=== PATIENT | male | born 1945 | race Caucasian/White ===

== ENCOUNTER → 2018-05-31 | Outpatient (CLI) | payer MEDICARE ==
--- NOTE | 2018-05-31 16:12 | MR ---
EXAMINATION TYPE: MR lumbar spine wo con DATE OF EXAM: 05/31/2018 COMPARISON: None HISTORY: Low back pain x 3 months TECHNIQUE: Multiplanar, multisequence images of the lumbar spine were acquired. FINDINGS: The lumbar spine vertebral bodies maintain normal vertebral body height. There is mild retr olisthesis of L5 on S1, likely on a degenerative basis. Remainder of the lumbar spine maintains usman l alignment. Conus medullaris is unremarkable terminating at L1-L2. Descending thoracic aorta is uppe r limits of normal size measuring 2.9 cm. Multilevel disc desiccation is seen with intervertebral dis c space narrowing. Bone marrow signal is patchy. There is a left lateral T1 hypointense and T2 hypoin tense focal osseous lesion of L4 measuring 1.2 cm in anterior posterior dimension and 1.0 cm in crani ocaudal dimension. This is seen on images 5 through 7 on sagittal T1 and T2 weighted sequences. L1-L2: Normal disc appearance without desiccation. No herniation, protrusion or disc bulging. No ca nal stenosis is present. Foramina are patent bilaterally. L2-L3: There is a broad-based disc bulge, facet arthropathy and ligamentum flavum buckling creating m ild bilateral neural foraminal narrowing and mild spinal canal stenosis. L3-L4: There is a broad-based disc bulge, facet arthropathy and ligamentum flavum buckling creating m ild bilateral neural foraminal narrowing. No significant spinal canal stenosis. L4-L5: There is a broad-based disc bulge and right paracentral disc herniation/extrusion with 1 cm [address] sc, migration that is subligamentous. Facet arthropathy and ligamentum flavum buckling contribute to moderate bilateral neural foraminal narrowing and mild spinal canal stenosis. L5-S1: There is a small central disc herniation superimposed upon a broad-based disc bulge without si gnificant neural foraminal narrowing or spinal canal stenosis. IMPRESSION: 1. T1/T2 hypointense focal L4 vertebral body lesion. Signal indicates bone marrow replacing process a nd therefore nuclear medicine bone scan could be performed to evaluate for uptake as this lesion is o f intermediate suspicion for metastasis. Correlation with PSA is also recommended. 2. Right paracentral disc herniation/extrusion with caudal migration at L4-L5 in combination with deg enerative disc disease crating moderate bilateral neural foraminal narrowing and mild spinal canal st enosis. 3. Small central disc herniation at L5-S1 without spinal canal stenosis. 4. Degenerative disc disease at L2-L3 creating mild spinal canal stenosis.
== END | disposition home or self-care (01) ==
LOC: RADMRIMAIN 08:45
PROVIDERS: ATTEND Family Medicine
DX: M48.061 Spinal stenosis, lumbar region without neurogenic claudication (principal); M99.73 Connective tissue and disc stenosis of intervertebral foramina of lumbar region; M51.17 Intervertebral disc disorders with radiculopathy, lumbosacral region; G95.9 Disease of spinal cord, unspecified
CPT/HCPCS: 72148